=== PATIENT | female | born 1960 | race Caucasian/White ===

== ENCOUNTER → 2016-11-11 | Outpatient (CLI) | payer OTHER ==
[~2016-11-11] MED LIST: ACET-1256 PO; ASPI81TA28 PO; CHOL100010 PO; CLB/200 PO; CLX/20 PO; DOCU-94 PO; KLN5X PO; LEVO50TA6 PO; LSX40 PO; NRN100 PO; OMEP40CA PO; SUCR1TAB PO; VANC1INJ10 IV; [UNRECOGNIZED DRUG - OTHER] PO
--- NOTE | 2016-11-11 12:23 | DIAGNOSTIC IMAGING REPORT ---
THREE-PHASE BONE SCAN OF THE ANKLES CLINICAL HISTORY: Right ankle pain. COMPARISON STUDY: Right ankle radiographs September 05, 2014. TECHNIQUE: 26 mCi of technetium 99m MDP was injected IV at 7:45 AM on November 11, 2016. Blood flow, blood flow and 3 hour delayed phase imaging of the ankles was performed in multiple projections. FINDINGS: Blood flow images demonstrate hyperemia of the right ankle, most evident within the distal right tibia and fibula, adjacent to the tibial component of the arthroplasty. There is also suspected mild hyperemia adjacent to the talar component of the tibiotalar arthroplasty. This remains asymmetric on the blood pool images. Delayed phase images demonstrate marked uptake of the distal right tibia and fibula adjacent to the tibial component. There is also moderate uptake adjacent to the talar component of the arthroplasty. There is moderate uptake within the left midfoot which is likely degenerative. IMPRESSION: Positive three-phase bone scan of the right ankle with hyperemia and marked delayed uptake within the distal right tibia and fibula adjacent to the tibial component of the tibiotalar joint arthroplasty. Moderate uptake adjacent to the talar component. This degree of uptake raises the possibility of a septic arthritis. However, significant loosening or a traumatic etiology could result in similar scintigraphic findings. Electronically signed by: Hmuberto Diaz M.D. 11/11/2016 12:22 PM Dictated Date/Time: 11/11/2016 11:28 AM
== END | disposition home or self-care (01) ==
LOC: C.NUCL 06:51
PROVIDERS: ATTEND Orthopaedic Surgery Sports Medicine
DX: M25.571 Pain in right ankle and joints of right foot (principal)

== ENCOUNTER 2024-08-29 08:48 | Observation (INO) ==
--- NOTE | 2024-07-26 13:24 | PAT Medication Instructions ---
Medication Instructions Date of Service July 26, 2024 Home Medications B-complex with vitamin C 1 tab PO QAM albuterol sulfate 90 mcg/actuation aerosol inhaler (Ventolin HFA) 2 puff inhalation Q6H PRN apixaban 5 mg tablet (Eliquis) 5 mg PO BID doxycycline hyclate 100 mg capsule 100 mg PO QDL fluticasone furoate 100 mcg-vilanterol 25 mcg/dose inhalation powder (Breo Ellipta) 1 inh inhalation QAM loratadine 10 mg tablet (Claritin) 10 mg PO QDL metoprolol succinate 100 mg tablet,extended release 24 hr 100 mg PO QAM metoprolol succinate 50 mg tablet,extended release 24 hr 50 mg PO QAM montelukast 10 mg tablet (Singulair) 10 mg PO HS ramipril 1.25 mg capsule 1.25 mg PO QAM acetaminophen 500 mg tablet 1,000 mg PO Q6H PRN atorvastatin 40 mg tablet 40 mg PO HS bumetanide 1 mg tablet 1 mg PO QPM calcium 600 mg (as carbonate)-vitamin D3 10 mcg (400 unit) tablet (Calcium 600 + D(3)) 1 tab PO QPM cholecalciferol (vitamin D3) 125 mcg (5,000 unit) tablet (Vitamin D3) 125 mcg PO 3XWK citalopram 10 mg tablet 10 mg PO QPM docusate sodium 100 mg tablet 100 mg PO HS levothyroxine 75 mcg tablet 75 mcg PO QAM omeprazole 40 mg capsule,delayed release 40 mg PO QAM Continue as directed doxycycline hyclate 100 mg capsule 100 mg PO QDL ASK your prescriber and surgeon apixaban 5 mg tablet (Eliquis) 5 mg PO BID DO NOT take the morning of surgery B-complex with vitamin C 1 tab PO QAM loratadine 10 mg tablet (Claritin) 10 mg PO QDL ramipril 1.25 mg capsule 1.25 mg PO QAM cholecalciferol (vitamin D3) 125 mcg (5,000 unit) tablet (Vitamin D3) 125 mcg PO 3XWK Take morning of surgery With a small sip of water, OTHERWISE NOTHING TO EAT OR DRINK AFTER MIDNIGHT: albuterol sulfate 90 mcg/actuation aerosol inhaler (Ventolin HFA) 2 puff inhalation Q6H PRN(use if needed; please bring with you to hospital day of surgery if possible) fluticasone furoate 100 mcg-vilanterol 25 mcg/dose inhalation powder (Breo Ellipta) 1 inh inhalation QAM metoprolol succinate 100 mg tablet,extended release 24 hr 100 mg PO QAM metoprolol succinate 50 mg tablet,extended release 24 hr 50 mg PO QAM acetaminophen 500 mg tablet 1,000 mg PO Q6H PRN(if needed) levothyroxine 75 mcg tablet 75 mcg PO QAM omeprazole 40 mg capsule,delayed release 40 mg PO QAM Take evening before surgery albuterol sulfate 90 mcg/actuation aerosol inhaler (Ventolin HFA) 2 puff inhalation Q6H PRN(if needed) montelukast 10 mg tablet (Singulair) 10 mg PO HS acetaminophen 500 mg tablet 1,000 mg PO Q6H PRN(if needed) atorvastatin 40 mg tablet 40 mg PO HS bumetanide 1 mg tablet 1 mg PO QPM calcium 600 mg (as carbonate)-vitamin D3 10 mcg (400 unit) tablet (Calcium 600 + D(3)) 1 tab PO QPM citalopram 10 mg tablet 10 mg PO QPM docusate sodium 100 mg tablet 100 mg PO HS Other Notes If you have any questions please call us at [phone] or [phone] or [phone] or [phone]
--- NOTE | 2024-07-30 10:54 | Anesthesiology Consultation ---
Date of Service July 30, 2024 Assessment & Plan (1) Encounter for pre-operative examination: Plan - awaiting surgeon ordered cardiology clearance, Dr. Abdirahman Valladares. - Outpatient joint pathway: Patient states she is to remain overnight. Surgeon's office confirmed this as well. Awaiting booking change. Chart Review Chart Review: Pending: Refer to Additional Notes / Consult section and Patient seen in Pre Admission Testing Teaching & Discussion Pre-Anesthesia Teaching/Discussion Notes: Instructed NPO after midnight before surgery, except medications with 15 cc of water. Medication instructions provided according to the PAT guidelines. History Surgery Operation Date: 08/29/24 10:35 Proposed Procedures p OP: Left Total Shoulder Arthroplasty Reverse, Biceps Tenodesis - Jefry Parrish MD Height/Weight Height: 5 ft 4 in Weight: 122 kg Allergies Allergy/AdvReac Type Severity Reaction Status Date / Time sulfamethoxazole Allergy Mild Rash Verified 07/26/24 12:18 [From Bactrim] trimethoprim [From Bactrim] Allergy Mild Rash Verified 07/26/24 12:18 lisinopril AdvReac Mild Cough Verified 07/26/24 12:18 vicryl sutures Allergy Severe "I usually Uncoded 07/26/24 12:18 get an infection" Medications Home Medications Medication Instructions Recorded Confirmed Last Taken B-complex with vitamin C 1 tab PO QAM 07/24/24 07/26/24 Unknown albuterol sulfate 90 mcg/actuation 2 puff inhalation Q6H PRN 07/24/24 07/26/24 Unknown aerosol inhaler (Ventolin HFA) Shortness Of Breath apixaban 5 mg tablet (Eliquis) 5 mg PO BID 07/24/24 07/26/24 Unknown doxycycline hyclate 100 mg capsule 100 mg PO QDL 07/24/24 07/26/24 Unknown fluticasone furoate 100 1 inh inhalation QAM 07/24/24 07/26/24 Unknown mcg-vilanterol 25 mcg/dose inhalation powder (Breo Ellipta) loratadine 10 mg tablet (Claritin) 10 mg PO QDL 07/24/24 07/26/24 Unknown metoprolol succinate 100 mg 100 mg PO QAM 07/24/24 07/26/24 Unknown tablet,extended release 24 hr metoprolol succinate 50 mg 50 mg PO QAM 07/24/24 07/26/24 Unknown tablet,extended release 24 hr montelukast 10 mg tablet 10 mg PO HS 07/24/24 07/26/24 Unknown (Singulair) ramipril 1.25 mg capsule 1.25 mg PO QAM 07/24/24 07/26/24 Unknown acetaminophen 500 mg tablet 1,000 mg PO Q6H PRN Pain 07/26/24 07/26/24 Unknown atorvastatin 40 mg tablet 40 mg PO HS 07/26/24 07/26/24 Unknown bumetanide 1 mg tablet 1 mg PO QPM 07/26/24 07/26/24 Unknown calcium 600 mg (as 1 tab PO QPM 07/26/24 07/26/24 Unknown carbonate)-vitamin D3 10 mcg (400 unit) tablet (Calcium 600 + D(3)) cholecalciferol (vitamin D3) 125 125 mcg PO 3XWK 07/26/24 07/26/24 Unknown mcg (5,000 unit) tablet (Vitamin D3) citalopram 10 mg tablet 10 mg PO QPM 07/26/24 07/26/24 Unknown docusate sodium 100 mg tablet 100 mg PO HS 07/26/24 07/26/24 Unknown levothyroxine 75 mcg tablet 75 mcg PO QAM 07/26/24 07/26/24 Unknown omeprazole 40 mg capsule,delayed 40 mg PO QAM 07/26/24 07/26/24 Unknown release Past Medical History Medical History Acid reflux controlled, stable per pt Asthma well controlled, only uses rescue inhaler when sick-last albuterol inhaler several months ago CAD (coronary artery disease) x 3 stents 2019 Cardiac murmur Depression Eye abnormality central macular thinning in left eye Hearing loss of right ear High cholesterol History of heart attack (08/2019) had heart cath with 3 stents placed---follows with Dr. Gary Hypertension controlled, stable per pt Hypothyroidism Menetrier's disease pt denies this, states was entered in error Meniere disease of right ear severe hearing loss On anticoagulant therapy eliquis bid Osteoarthritis Skin cancer basal and squamous cell carcinoma Sleep apnea non-compliant with cpap Thyroid nodule Patient denies h/o stroke, seizures, heart failure, DM, blood clots/DVTs or blood transfusions. Exercise / Class Metabolic Activity III < 4 Walking/Shop/Light housework (denies chest discomfort or shortness of breath with one flight of stairs) Past Family History Family History Son Family history of reaction to anesthesia difficulty wakin Other Diabetes Skin cancer Past Surgical History Surgical History History of ankle surgery right ankle replacement History of appendectomy during hysterectomy History of cardiac cath 08/2019 with 3 stents placed @ [place] History of section History of colonoscopy History of dilatation and curettage History of gynecologic surgery benign tumor removed from uterus History of Mohs micrographic surgery for skin cancer x2 on face History of open reduction and internal fixation (ORIF) procedure right foot--hardware in place History of partial hysterectomy History of sinus surgery thornwalt cyst removed History of tonsillectomy and adenoidectomy History of tooth extraction History of total left knee replacement (TKR) History of total right knee replacement (TKR) History of wisdom tooth extraction S/P PICC central line placement had severe infection in knee 2015 (pt not sure what kind)--admitted to [facility] with Dr. March and received antibiotics S/P thyroid biopsy nodules "inconclusive" Status post excision of lipoma multiple removed Past Anesthesia History No Hx of Anesthesia Complications and No Family Hx of Anesthesia Complications History of PONV No Hx of PONV and No Hx of Motion Sickness Social History Smoking Status: Never smoker Do You Dip or Chew Tobacco: No Hx Alcohol Use: No Hx Substance Use: No substance use type: does not use Review of Systems Patient denies chest pain, shortness of breath, dyspnea on exertion, fever, chills, cough, wheezing, or palpitations. Physical Exam Vital Signs Vitals BP 124/81 P 53 TEMP 98.2 SP02 98% on RA RESP 18 Physical Patient resting comfortably in chair in no acute distress, alert and oriented, responding appropriately throughout visit Full cervical extension range of motion without pain TMD 3.5 finger breadths Mallampati Score 3 Dentition: one cap, denies chipped or loose teeth, crowns, implants or bridges Lungs: normal respiratory effort. Good air movement, clear throughout to auscultation, no adventitious breath sounds Cardiac: regular rate and rhythm, no murmurs noted Carotid arteries: negative bruit bilat Lab Results Anesthesia Preop Results Results Anesthesia Widget: WBC 4.86 K/ul (4.8-10.8) 07/30/24 Hgb 13.4 g/dl (12.0-16.0) 07/30/24 Hct 41.3 % (37.0-47.0) 07/30/24 Plt 212 K/uL (130-400) 07/30/24 Na 138 mmol/L (136-145) 07/30/24 K 4.1 mmol/L (3.5-5.1) 07/30/24 Cl 103 mmol/L (98-107) 07/30/24 CO2 32 mmol/L (21-32) 07/30/24 BUN 21 mg/dl (6-23) 07/30/24 Creat 1.02 mg/dl (0.6-1.2) 07/30/24 Glucose Level 84 mg/dl (70-99(Fasting)) 07/30/24 PT 11.2 Seconds (9.0-12.0) 07/30/24 PTT 29 Seconds (21-31) 07/30/24 INR 1.0 (0.9-1.1) 07/30/24 Testing Electrocardiogram Date: 12/26/23 Sinus rhythm, rate 70 bpm Low voltage in precordial leads RVR (V1) nondiagnostic Chest X-Ray Date: 07/30/24 No acute findings. Echocardiogram Date: 06/01/21 EF 60-65% No regional wall motion abnormalities Grade I diastolic dysfunction No significant valvular pathology Stress Test Date: 06/01/21 MPHR 70% Moderate decrease in radiotracer uptake involving the mid to apical anterior segments and apex during both rest and stress imaging. The associated wall motion on the gated images appears to be normal. This could represent breast attenuation artifact, but prior nontransmural infarct cannot be ruled out. There is no evidence of reversible ischemia LVEF 72% Cardiac Catheterization Date: 08/23/19 Left main: does not have any angiographically significant disease LAD: tortuous vessel has mid to distal segment 90-99% lesion LCx: does not have any angiographically significant disease RCA: does not have any angiographically significant disease Culprit critical 90-99% mid/distal stenosis involving the tortuous diagonal, treated successfully with 3 overlapping ESTRELLA
[~2024-08-29 08:48] MED LIST changes: -ACET-1256 PO; -ASPI81TA28 PO; +BUPIVACAINE 0.5 % 5 MG/1 ML PF 10ML VIAL ONE; -CHOL100010 PO; -CLB/200 PO; -CLX/20 PO; -DOCU-94 PO; -KLN5X PO; -LEVO50TA6 PO; +LIDOCAINE 2% 2 ML VIAL/AMP(20MG/ML) INFIL ONE; -LSX40 PO; +MIDAZOLAM HCL 1 MG/ML 2ML VIAL ONE; -NRN100 PO; -OMEP40CA PO; +ONDANSETRON INJ 2 MG/ML 2 ML VIAL ONE; +PROPOFOL IV EMULSION 10 MG/ML 100 ML VIAL IV ONE; +PROPOFOL IV EMULSION 10 MG/ML 20 ML VIAL IV ONE; +ROCURONIUM BROMIDE 10 MG/ML 5 ML VIAL IV ONE; -SUCR1TAB PO; +SUGAMMADEX SODIUM 200 MG/2 ML VIAL IV ONE; -VANC1INJ10 IV; -[UNRECOGNIZED DRUG - OTHER] PO; +fentaNYL citrate PF 100 MCG/2 ML VIAL ONE
[2024-08-29] MEDS: ACETAMINOPHEN 500 MG TAB PO SCH ×2 (09:09→17:00)
[2024-08-29] MEDS: LR 60ML/HR IV SCH (09:10)
[2024-08-29] MEDS: LR 15ML/HR IV SCH (09:10)
[2024-08-29] MEDS ORDERED: ATROPINE SULFATE 0.1 MG/ML 10ML SYR IV PRN (09:51)
[2024-08-29] MEDS ORDERED: PROMETHAZINE HCL 6.25 MG in SODIUM CHLORIDE 0.9% 50 ML IV PRN (09:51)
[2024-08-29] MEDS ORDERED: ONDANSETRON INJ 2 MG/ML 2 ML VIAL IV PRN ×2 (09:51→13:41)
[2024-08-29] MEDS ORDERED: HYDROmorphone INJ 2 MG/ML SYR/VIAL IV PRN (09:51)
[2024-08-29] MEDS ORDERED: ePHEDrine sulfate 50 MG/ML AMP IV PRN (09:51)
--- NOTE | 2024-08-29 10:04 | History & Physical Report ---
Date of Service August 29, 2024 Assessment & Plan (1) Tendinopathy of left biceps: (2) Left rotator cuff tear arthropathy: Plan The informed consent was reviewed and confirmed with the patient and her today in the preoperative area. We all agreed to proceed with the plan for LEFT REVERSE TOTAL SHOULDER ARTHROPLASTY, BICEPS TENODESIS. We did review previous surgical records. She had no wound healing issues with the use of Monocryl on her foot. Vicryl seems to create dehiscence. She also has made no reactions to gus in the past. History of Present Illness Chief Complaint: Left shoulder pain and rotator cuff dysfunction Primary Care Provider: Alley Damon PA-C 64-year-old female presents today to proceed with the plan we decided upon at a clinic visit on 07/24/2024. Her shoulder pain has not improved at all. She remains with limited motion that interferes with daily activities. She wants to proceed as we discussed with the left reverse shoulder arthroplasty with biceps tenodesis. Allergies Allergy/AdvReac Type Severity Reaction Status Date / Time sulfamethoxazole Allergy Mild Rash Verified 08/29/24 09:04 [From Bactrim] trimethoprim [From Bactrim] Allergy Mild Rash Verified 08/29/24 09:04 lisinopril AdvReac Mild Cough Verified 08/29/24 09:04 vicryl sutures Allergy Severe "I usually Uncoded 08/29/24 09:04 get an infection" Home Medications Medication Instructions Recorded Confirmed Type B-complex with vitamin C 1 tab PO QAM 07/24/24 08/29/24 History albuterol sulfate 90 mcg/actuation 2 puff inhalation Q6H PRN 07/24/24 08/29/24 History aerosol inhaler (Ventolin HFA) Shortness Of Breath apixaban 5 mg tablet (Eliquis) 5 mg PO BID 07/24/24 08/29/24 History doxycycline hyclate 100 mg capsule 100 mg PO QDL 07/24/24 08/29/24 History fluticasone furoate 100 1 inh inhalation QAM 07/24/24 08/29/24 History mcg-vilanterol 25 mcg/dose inhalation powder (Breo Ellipta) loratadine 10 mg tablet (Claritin) 10 mg PO QDL 07/24/24 08/29/24 History metoprolol succinate 100 mg 100 mg PO QAM 07/24/24 08/29/24 History tablet,extended release 24 hr metoprolol succinate 50 mg 50 mg PO QAM 07/24/24 08/29/24 History tablet,extended release 24 hr montelukast 10 mg tablet 10 mg PO HS 07/24/24 08/29/24 History (Singulair) ramipril 1.25 mg capsule 1.25 mg PO QAM 07/24/24 08/29/24 History acetaminophen 500 mg tablet 1,000 mg PO Q6H PRN Pain 07/26/24 08/29/24 History atorvastatin 40 mg tablet 40 mg PO HS 07/26/24 08/29/24 History bumetanide 1 mg tablet 1 mg PO QPM 07/26/24 08/29/24 History calcium 600 mg (as 1 tab PO QPM 07/26/24 08/29/24 History carbonate)-vitamin D3 10 mcg (400 unit) tablet (Calcium 600 + D(3)) cholecalciferol (vitamin D3) 125 125 mcg PO 3XWK 07/26/24 08/29/24 History mcg (5,000 unit) tablet (Vitamin D3) citalopram 10 mg tablet 10 mg PO QPM 07/26/24 08/29/24 History docusate sodium 100 mg tablet 100 mg PO HS 07/26/24 08/29/24 History levothyroxine 75 mcg tablet 75 mcg PO QAM 07/26/24 08/29/24 History omeprazole 40 mg capsule,delayed 40 mg PO QAM 07/26/24 08/29/24 History release Past Med/Surg History Problem List Tendinopathy of left biceps Left rotator cuff tear arthropathy Arthritis of left shoulder Wound dehiscence Left knee pain Genu varum of left lower extremity Flexion contracture of left knee Degenerative joint disease of knee, left DJD (degenerative joint disease), ankle and foot (Acute) DJD (degenerative joint disease), ankle and foot (Acute) Ankle pain (Acute) Achilles tendon contracture, right (Acute) Medical History CAD (coronary artery disease) x 3 stents 2020 Osteoarthritis Hypothyroidism Hearing loss of right ear Meniere disease of right ear severe hearing loss On anticoagulant therapy eliquis bid Thyroid nodule Eye abnormality central macular thinning in left eye Depression Cardiac murmur Sleep apnea non-compliant with cpap Menetrier's disease pt denies this, states was entered in error Skin cancer basal and squamous cell carcinoma Hypertension controlled, stable per pt High cholesterol Acid reflux controlled, stable per pt History of heart attack (08/2019) had heart cath with 3 stents placed---follows with Dr. Gary Asthma well controlled, only uses rescue inhaler when sick-last albuterol inhaler several months ago Surgical History S/P PICC central line placement had severe infection in knee 2016 (pt not sure what kind)--admitted to [facility] with Dr. March and received antibiotics History of dilatation and curettage History of open reduction and internal fixation (ORIF) procedure right foot--hardware in place History of total right knee replacement (TKR) History of total left knee replacement (TKR) History of colonoscopy Status post excision of lipoma multiple removed History of section History of gynecologic surgery benign tumor removed from uterus History of partial hysterectomy History of appendectomy during hysterectomy History of Mohs micrographic surgery for skin cancer x2 on face History of tooth extraction History of wisdom tooth extraction History of tonsillectomy and adenoidectomy History of sinus surgery thornwalt cyst removed S/P thyroid biopsy nodules "inconclusive" History of cardiac cath 08/2019 with 3 stents placed @ [facility] History of ankle surgery right ankle replacement Family History Son Family history of reaction to anesthesia difficulty wakin Other Diabetes Skin cancer Social History Smoking Status: Never smoker Second Hand Exposure: Yes (father smoked); Do You Dip or Chew Tobacco: No; Tobacco Cessation Education Requested by Patient: No Hx Alcohol Use: No Hx Substance Use: No Preferred Language: French Communication Ability: Effective Lead Furnace Operator Required: No Beliefs That Will Affect Care: None marital status: Current Living Situation: Spouse current occupational status: employed 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 Physical Exam Left shoulder: No overlying skin disorder. No change in her range of motion exam. Neuro vastly intact. Constitutional WD/WN, vitals as above no acute distress and not intoxicated appearing Respiratory normal respiratory effort; no labored breathing Cardiovascular Extremities: normal capillary refill Results & Data Results & Data Laboratory Results . Diagnostic Findings . PG Care Time/CCT Total # of Minutes Spent Total Time Spent with Patient: Total time spent is greater than 50% in coordination of care (as documented) at patient's floor/unit and/or counseling patient: Coding Level of Care Code None Diagnoses Tendinopathy of left biceps M67.922 Left rotator cuff tear arthropathy M75.102; M12.812
[2024-08-29] MEDS: NACL IV ONE (10:35)
[2024-08-29] MEDS: TRANEXAMIC ACID IV ONE (10:35)
[2024-08-29] MEDS: ceFAZolin 3000MG 3,000 MG/72.5 ML BAG IV SCH (10:45)
[2024-08-29] MEDS ORDERED: ePHEDrine sulfate 50 MG/5 ML SYR ONE (11:09)
[2024-08-29] MEDS ORDERED: TRANEXAMIC ACID 100 MG/ML 10 ML VIAL IV ONE (11:09)
[2024-08-29] MEDS ORDERED: PROPOFOL IV EMULSION 10 MG/ML 20 ML VIAL IV ONE ×2 (12:27)
[2024-08-29] MEDS: TRANEXAMIC ACID / 0.7% NACL 1000MG/100ML BAG IV ONE (12:55)
[2024-08-29] MEDS ORDERED: SUGAMMADEX SODIUM 200 MG/2 ML VIAL IV ONE (12:57)
[2024-08-29] MEDS ORDERED: MAGNESIUM HYDROXIDE SUSP 30 ML UDC PO PRN (13:41)
[2024-08-29] MEDS ORDERED: HYDROmorphone INJ 0.5 MG/0.5 ML SYR IV PRN (13:41)
[2024-08-29] MEDS ORDERED: diphenhydrAMINE Capsule 25 MG CAP PO PRN (13:41)
[2024-08-29] MEDS ORDERED: METOCLOPRAMIDE HCL INJ 5 MG/ML 2 ML VIAL IV PRN (13:41)
[2024-08-29] MEDS ORDERED: HYDROmorphone INJ 1 MG/ML SYRINGE IV PRN (13:41)
[2024-08-29] MEDS ORDERED: NALOXONE HCL 0.4 MG/1 ML VIAL/CARP IV PRN (13:41)
[2024-08-29] MEDS ORDERED: bisacodyL 10 MG SUPP PR PRN (13:41)
[2024-08-29] MEDS ORDERED: ALBUTEROL HFA 8 GM INHALER INH PRN (13:47)
[2024-08-29] MEDS ORDERED: ACETAMINOPHEN 500 MG TAB PO PRN (13:47)
--- NOTE | 2024-08-29 13:50 | Operative Report ---
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, Left rotator cuff tear arthropathy I identified the patient and participated in the time-out.: Yes Procedure Operation Date: 08/29/24 10:20 Actual Procedures p Left Total Shoulder Arthroplasty Reverse (Left) - Jefry Parrish MD Surgeon Jefry Parrish MD Keyboard Instrument Repairer Susan Souza PA-C Estimated Blood Loss 50 Findings See Below Arthrex Univers Reverse Shoulder Arthroplasty was performed: Stem [place] size 9, 36 mm neutral suture cup, 36+3/33 humeral insert, 24 mm 20 degree full oblique augment baseplate, 25 mm modular post, 33+4/24 modular glenoid system glenosphere, Univers peripheral locking screw 5.5 x 16, 20, 32 and 28 mm EXAMINATION UNDER ANESTHESIA: Preoperative exam under anesthesia revealed the followin degrees of forward flexion, 15 degrees external rotation at the side, 90 degrees of abduction, 25 degrees of external rotation and 10 degrees of internal rotation with the arm abducted. Postoperatively, range of motion parameters after implantation of prosthesis revealed a stable prosthesis with range of motion parameters as follows: 130 of forward flexion, 60 of external rotation at the side, 120 of abduction, 90 of external rotation with the arm abducted, 30 of internal rotation with the arm abducted. The patient's safe range of motion included the ability to get to the back of the head. Internal rotation to the belly without significant tension. Specimens humeral head to pathology by routine Anesthesia Type General Regional Complications none Disposition Accompanied Patient To Recovery: Yes Disposition: Recovery Room Indications 64-year-old female presented with progressive left shoulder pain and rotator cuff dysfunction, refractory to nonoperative management. Physical exam and advanced imaging were consistent with advanced arthrosis of the glenohumeral joint with compromise of the rotator cuff function. Given the glenoid deformity and rotator cuff dysfunction, I did offer reverse shoulder arthroplasty to address the symptoms. We reviewed the risk, benefits, and alternatives of this intervention in detail, as outlined in several clinical notes. Informed consent was documented in clinic, as the patient desired to proceed. Description of Procedure The patient was identified in the preoperative holding area. The operative extremity was marked. Regional block was administered by Anesthesia. The patient was then brought to the operating room and placed supine. Prelimin buddy time-out procedure was performed. All were in agreement. General endotracheal anesthesia was induced without any issues. The patient was sat up in around 40-45 degrees of inclination in the beachchair position. Exam under anesthesia was performed confirming the above findings. Preoperative antibiotics were administered. TXA was infused. Sequential compressive devices were placed on her bilateral lower extremities for DVT prophylaxis. Bony prominences were inspected, well-padded and free of any evidence for peripheral nerve compression. The entire operative upper extremity was then prepped and draped in a normal sterile fashion for shoulder surgery, with use of padded [place] to hold the arm. Prior to incision, a second time-out procedure was performed confirming the patient, site, laterality and the procedure. All were in agreement. A deltopectoral incision was utilized. Incision was carried out sharply and with electrocautery through the skin and subcutaneous tissues. The deltopectoral interval was developed. The cephalic vein was taken laterally. Subdeltoid space was developed bluntly. A deltoid brown retractor was placed to retract the deltoid laterally and superiorly. 1 cm of the superior border of the pectoralis major tendon insertion site was released in standard fashion to improve exposure. Clavipectoral fascia was removed with electrocautery. Exte nsive subacromial bursitis was encountered and this was completely removed with a Bovie. The lateral aspect of the conjoined tendon was then followed to its insertion site on the coracoid. The conjoined tendon was retracted medially. The biceps tendon was identified, enlarged consistent with tendinopathy. He was released space and the Bovie proximally along its tract to the superior labrum. It was freed from the biceps groove. There was attritional rupture just below the pectoralis insertion. The distal stump was not able to the identified underneath the pectoralis tendon. A sharp Hohmann retractor was then placed into the interval and into the joint. Subscapularis tendon was still present and attached on the lesser tuberosity. The articular surface of the humeral head could be appreciated. The capsule with the subscapularis tendon was then released up the inferior humeral neck as one layer. The humeral head dislocated with successive extension and external rotation. Visualization of the humeral head revealed significant osteoarthritis and wear. The rotator cuff had tendinopathy and full-thickness tearing of the supraspinatus. The top of the humeral head was identified. A starting pin was used to sound the humeral canal. The bone quality was moderate. Opening reamers were used to define the canal. The 6 mm reamer allowed alignment with the canal. The cutting guide was then placed on the reamer handle in the usual fashion. Humeral head appeared to be in 35-40 degrees of retroversion. The cutting guide was fixed with a breakaway pins. Sagittal saw was then used to create the humeral head cut. Blunt Hohmann was used posteriorly to ensure safety with a saw. Humeral head covering cap was then placed. We then proceeded over to glenoid. An anterior glenoid neck retractor was placed. The MGHL and SGHL were released off of the muscular portion of the subscapularis being mindful of palpating and identifying the axillary nerve to make sure it was free of injury during releases. Next, the interval between the IGHL and the muscular portions of the subscapularis was identified. My finger was on the axillary nerve to protect it during releases. The IGHL was then released up to around the 7 o'clock position. A blunt retractor was then placed to retract the humerus posteriorly. A sharp Hohmann retractor was placed at the 12 o'clock position. The glenoid deformity was evaluated. Extraneous capsulolabral tissue was dissected to reveal the bone anatomy. This confirmed our decision to proceed with preoperative virtual planning. The arm was placed around 30 degrees of flexion, 90 degrees of external rotation and 30 degrees of abduction to distract the humerus posteriorly. Labrum was circumferentially removed including the biceps tendon stump with a Bovie. Subcoracoid recess was then explored. A Karie was used remove a small loose body was identified on her MRI. Arthrex virtual implant positioning guide set to the preplanned parameters was used to place an initial guide pin. The augment template was then placed. It seemed that we are in the appropriate position with our central pin and the augment would fit well. The short starting reamer was used over the pin to control depth. The full augment oblique reamer was then used over the pin after drilling the starting position. The depth was judged based on the preoperative plan. Once cartilage debrided from the subchondral bone the preparation was evaluated. We then reamed to the depth matching the preoperative plan. The central post drill was then used over the pin. There was no breach of the vault. Copious irrigation was performed to irrigate out the joint. The augment template was then dropped over the pin. There was good fill and fit and implant match. The planned glenoid baseplate and central post were then placed. The implant was firmly tamped down with good capture of the central post. We then drilled, measured, and placed 4 locking screws in the available baseplate positions. The inferior and superior screw positions were first filled with nonlocking screws. There is only minimal purchase, so these were switched to locking screws once we had fixation of the anterior and posterior positions. The final construct appeared to be extremely strong as the entire glenoid and scapula moved together as one unit confirming excellent fixation of the baseplate. The peripheral winder hand was then used to clear out soft tissue and osteophytes that would impinge on the backside of the glenosphere. Next, the planned glenosphere was confirmed and opened on the back table. The glenosphere was then seated into the baseplate and impacted onto the peralta taper. A mdeina was used to test fixation, before resetting with additional malleting. The central fixation screw was then placed. The joint was then copiously irrigated. Humerus was then brought back into view with external rotation, deltoid brown retractor and multiple blunt Homans. Successive trial broaches were then broached up to a size 9, which gave us excellent press-fit. The trial stem was left in place. The cup reamer was used over the post. This area was irrigated. The final stem and suture cup prosthesis was then brought onto the field. It was positioned according to the rotation determined and impacted for a firm fix. A trial liner was then placed that would best accommodate the anatomy. The humerus was then reduced onto the glenoid with the arm in abduction and external rotation. The arm was taken out of the jaimes, taken through a physiologic range of motion. No evidence for impingement. No evidence for kick off. No shuck. Thus, the trials would be a most appropriate for stability. Next, the trial humeral component was removed. Final tray insert as well as the poly component was opened. The tray spacer was fixed with the screw. Final humeral insert was then placed with firm impaction. The final poly was then placed. With the final components in place, humeral component was then reduced onto the glenosphere and final postoperative range of motion assessment was performed. Stability confirmed. This completed the open reverse total shoulder replacement. The routine closing sequence was begun. Thorough pulse lavage irrigation was performed. Next, a 2-minute iodine solution soak was performed. The arm is held at 90 degrees of abduction and neutral rotation to allow the solution to lay in the wound. Gentle lavage using iodine solution was performed for 2 minutes. Pulse positive then used to thoroughly irrigate out the iodine solution. A total of 3 L normal saline was used. The wound was copiously irrigated. We avoided Vicryl during the closure because of the sensitivity and previous history of wound dehiscence with that material. The deltopectoral incision was closed with #0 Monocryl Vicryl suture. Subcutaneous tissues were closed with 2-0 Monocryl suture in short stretches of running suture. The dermis was approximated using 3-0 Monocryl suture. Skin was closed with gus. The wound was dressed with xeroform, gauze, and ABDs, contained by Horacio. The patient was placed in a standard sling and turned over to the anesthesia team. The patient tolerated procedure well, was extubated in the operating room without complication, and transferred to the PACU in stable condition. DISPOSITION: The patient will remain in sling for a total of 4 weeks. There is admitted for observation based on preanesthetic testing recommendations. Routine postoperative oral antibiotic prophylaxis will be prescribed at discharge. Hand, wrist, and elbow range of motion exercises may be initiated. Formal therapy will be initiated starting with gentle active assisted range of motion. No strengthening will be permitted before 12 weeks. Physician business banking sales assistant attestation: Susan Souza PA-C was present and scrubbed for the duration of the case. Skilled assistance was essential to prepping/draping, patient positioning, retraction, and wound closure. I attest to the content of the Intraoperative Record and any orders documented therein. Any exceptions are noted below.
--- NOTE | 2024-08-29 14:26 | XRay Report ---
XR shoulder LT min 2V routine CLINICAL HISTORY: Post shoulder surgery COMPARISON: None FINDINGS: Left shoulder prosthesis shows no hardware complication. There is expected soft tissue gas . Skin gus are present. IMPRESSION: Unremarkable postoperative exam. ACT 112: Negative or not required by law. Electronically signed by: Edmundo Merritt M.D. 08/29/2024 2:25 PM
--- NOTE | 2024-08-29 14:29 | Anesthesiology Progress Note ---
Date of Service August 29, 2024 Anesthesia Post Procedure Vital Signs Vital Signs: Temp Pulse Pulse Resp BP Pulse Ox O2 Del Method 08/29/24 14:05 64 16 135/81 100 Oxymask 08/29/24 13:55 68 16 128/80 100 Oxymask 08/29/24 13:45 72 22 128/77 97 Oxymask 08/29/24 13:39 36.2 C L 70 14 119/69 98 Oxymask 08/29/24 08:58 36.8 C 71 20 136/87 98 Room Air O2 Flow Rate 08/29/24 14:05 2 08/29/24 13:55 4 08/29/24 13:45 6 08/29/24 13:39 6 08/29/24 08:58 Transfer of Care Handoff Completed per policy Notes Mental Status: alert / awake / arousable Patient Amnestic to Procedure: Yes Nausea / Vomiting: adequately controlled Pain: adequately controlled Airway Patency, RR, SpO2: stable & adequate BP & HR: stable & adequate Hydration State: stable & adequate Anesthetic Complications: no major complications apparent and Pt Satisfied with anesthetic care
[2024-08-29] MEDS: fentaNYL citrate PF 100 MCG/2 ML VIAL IV PRN (14:30)
[2024-08-29] MEDS: oxyCODONE HCL IR 5 MG TAB (IMMEDIATE RELEASE) PO PRN (15:46)
[2024-08-29] MEDS: BUPIVACAINE LIPOSOME 1.3% 133 MG/10 ML VIAL ONE (16:35)
[2024-08-29] MEDS: SODIUM CHLORIDE 0.9% 1,000 ML IV SCH (16:45)
[2024-08-29] MEDS: BUMETANIDE 1 MG TAB PO SCH (16:59)
[2024-08-29] MEDS: ceFAZolin 2000MG 2,000 MG/15 ML SYR IV SCH (19:16)
[2024-08-29] MEDS: ATORVASTATIN 40 MG TAB PO SCH (20:59)
[2024-08-29] MEDS: CALCIUM 600MG + VIT D 400 IU TAB PO SCH (20:59)
[2024-08-29] MEDS: MONTELUKAST SODIUM 10 MG TABLET PO SCH (20:59)
[2024-08-29] MEDS: SENNA 8.6 MG TAB PO SCH (21:00)
[2024-08-29] MEDS: DOCUSATE SODIUM 100 MG CAP PO SCH ×2 (21:00)
[2024-08-30] MEDS: LEVOTHYROXINE SODIUM 75 MCG TABLET PO SCH (05:38)
[2024-08-30 07:40] VITALS: BP 98/59; PULSE 77; RESP 16; TEMP 98.2; O2SAT 95
[2024-08-30] MEDS: ENALAPRIL MALEATE 5 MG TAB PO SCH (08:36)
[2024-08-30] MEDS: MULTIVITAMIN TAB PO SCH (08:37)
[2024-08-30] MEDS: PANTOprazole 40 MG TAB PO SCH (08:37)
[2024-08-30] MEDS: ASCORBIC ACID 500 MG TAB PO SCH (08:37)
[2024-08-30] MEDS: FLUTICASONE/VILANTEROL 100/25MCG 14 PUFFS/INHALER INH SCH (08:38)
[2024-08-30] MEDS: METOPROLOL SUCC 50MG EXT REL TAB PO SCH (08:38)
[2024-08-30] MEDS: VITAMIN B COMPLEX TAB PO SCH (08:38)
[2024-08-30] MEDS ORDERED: CHOLECALCIFEROL 125 MCG (5,000 UNITS) TAB PO SCH (09:00)
[2024-08-30] MEDS ORDERED: METOPROLOL SUCC 50MG EXT REL TAB PO SCH (09:00)
--- NOTE | 2024-08-30 09:23 | Orthopedic Progress Note ---
Date of Service August 30, 2024 Assessment & Plan (1) Status post replacement of left shoulder joint: POD 1 left reverse TSA. -Pain control -Please work with PT/OT prior to discharge -Discharge medications have been sent. She is being sent home on oxycodone as well as cefadroxil. Patient is aware of these medications. -She would like physical therapy in [place]. We will send this from an outpatient perspective today. -Disposition: Discharge after PT/OT eval -Continue medications as originally prescribed. -Follow-up in 2 weeks for initial postop check. Subjective Operation Date: 08/29/24 10:20 Actual Procedures p Left Total Shoulder Arthroplasty Reverse (Left) - Jefry Parrish MD Karli is a 64-year-old female who is postop day 1 from a left total shoulder arthroplasty by Dr. Parrish. She states she is doing okay. She is wearing her sling as indicated. States that the pain is under control. She would like to do physical therapy in [place] when she is discharged. No other questions or concerns today. Review of Systems All systems reviewed & are unremarkable except as noted in HPI & below. Physical Exam General: Alert and oriented. In no acute distress. Left shoulder: Inspection unremarkable. Dressing is dry and intact. She is wearing her sling as indicated. She has good motion of her left hand and wrist. She is neurovascularly intact in the left upper extremity. Results & Data Results & Data Laboratory Results . Diagnostic Findings . PG Care Time/CCT Total # of Minutes Spent Total Time Spent with Patient: Total time spent is greater than 50% in coordination of care (as documented) at patient's floor/unit and/or counseling patient: Coding Level of Care Code 11612 Post Operative Follow-Up Diagnoses Status post replacement of left shoulder joint Z96.612
[2024-08-30] MEDS ORDERED: LORATADINE 10 MG TAB PO SCH (11:30)
[2024-08-30] MEDS ORDERED: DOXYCYCLINE HYCLATE 100 MG CAP PO SCH (11:30)
[2024-08-30] MEDS ORDERED: CITALOPRAM 20 MG TAB PO SCH (21:00)
[2024-08-30] MEDS ORDERED: APIXABAN 5 MG TABLET PO SCH (21:00)
== END 2024-08-30 10:59 | disposition home or self-care (01) ==
LOC: 3E 08:48 → ASU 08:48